=== PATIENT | female | born 1965 | race Caucasian/White ===

== ENCOUNTER 2021-03-15 07:47 | Outpatient (CLI) | payer OTHER, MEDICARE | END 2021-03-15 07:48 | disposition home or self-care (01) | LOC: CSHCT 07:47 | PROVIDERS: ATTEND Internal Medicine | DX: R10.31 Right lower quadrant pain (principal); K44.9 Diaphragmatic hernia without obstruction or gangrene | CPT/HCPCS: 74177 ==